=== PATIENT | male | born 1960 | race Caucasian/White ===

== ENCOUNTER 2024-03-22 11:12 | Emergency (ER) | payer OTHER, MEDICAID ==
[~2024-03-22] VITALS: Ht 162.6 cm; Wt 81.6 kg
[2024-03-22 11:20] VITALS: BP 139/77; PULSE 78; RESP 18; TEMP 98.4; O2SAT 98
[2024-03-22] MEDS ORDERED: LOPE-143 PO (12:33)
[2024-03-22] MEDS ORDERED: PROM118S5 PO (12:33)
[2024-03-22 13:00] VITALS: BP 139/77; PULSE 78; RESP 18; TEMP 98.4; O2SAT 98
[2024-03-22 13:03] LABS: FLU A ANTIGEN negative (NEGATIVE); FLU B ANTIGEN negative (NEGATIVE)
== END 2024-03-22 13:00 | disposition home or self-care (01) ==
LOC: MED 11:12
DX: B34.9 Viral infection, unspecified (principal); R19.7 Diarrhea, unspecified; Z20.822 Contact with and (suspected) exposure to COVID-19; E11.9 Type 2 diabetes mellitus without complications; I10 Essential (primary) hypertension; E78.5 Hyperlipidemia, unspecified
CPT/HCPCS: 71045; 93005; 99285